=== PATIENT | male | born 1970 | race Hispanic/Latino ===

== ENCOUNTER 2016-11-24 23:20 | Emergency (ER) | payer MEDICARE | END 2016-11-25 00:15 | disposition left against medical advice (07) | LOC: ED 23:20 | DX: R03.0 Elevated blood-pressure reading, without diagnosis of hypertension (principal); Z53.21 Procedure and treatment not carried out due to patient leaving prior to being seen by health care provider ==

== ENCOUNTER 2016-12-11 16:13 | Emergency (ER) | payer OTHER, MEDICARE ==
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
[2016-12-11 17:04] LABS: Basophils % (Auto) 0.9 % (0.0-1.8); Eosinophils % (Auto) 0.9 % (0.0-4.3); Hematocrit 32.8 % (35.5-45.6); Hemoglobin 10.5 gm/dl (11.8-15.2); Mean Corpuscular HGB Conc 32 % (32-34); Mean Corpuscular Hemoglobin 27 pg (28-32); Mean Corpuscular Volume 84 fl (84-94); Platelet Count 185 K/mm3 (140-440); Red Cell Distribution Width 18.2 % (13.2-15.2); White Blood Count 4.7 K/mm3 (4.5-11.0)
[2016-12-11 17:10] LABS: BUN/Creatinine Ratio 8.62; Calcium 9.1 mg/dL (8.4-10.2); Chloride 98.5 mmol/L (98-107); Potassium 4.1 mmol/L (3.6-5.0)
[2016-12-11 17:15] LABS: INR 1.14 (0.87-1.13)
--- NOTE | 2016-12-12 08:16 | XRay Report ---
RIGHT HUMERUS: History: Trauma/puncture wound AP and lateral views of the humerus demonstrate normal mineralization and contours for this patient's age. No destructive changes are noted and the adjacent soft tissues are normal. IMPRESSION: Normal right humerus.
== END 2016-12-11 17:35 | disposition home or self-care (01) ==
LOC: ED 16:13
DX: T82.838A Hemorrhage due to vascular prosthetic devices, implants and grafts, initial encounter (principal); E11.9 Type 2 diabetes mellitus without complications; N28.89 Other specified disorders of kidney and ureter; Z88.2 Allergy status to sulfonamides; V89.2XXA Person injured in unspecified motor-vehicle accident, traffic, initial encounter; Y92.488 Other paved roadways as the place of occurrence of the external cause; Y93.89 Activity, other specified; Y99.8 Other external cause status
CPT/HCPCS: 36415; 73060; 80048; 85025; 85610; 85730; 86850; 86900; 86901; 99284; A6021

== ENCOUNTER 2017-06-24 08:53 | Emergency (ER) | payer MEDICARE ==
[2017-06-24] MEDS ORDERED: SODIUM BICARBONATE IV ONE (09:10)
[2017-06-24] MEDS ORDERED: NARCAN 0.4 MG/1 ML ONE (09:10)
[2017-06-24] MEDS ORDERED: ADRENALIN ONE (09:10)
[2017-06-24] MEDS ORDERED: CALCIUM CHLORIDE IV ONE (09:10)
--- NOTE | 2017-06-24 09:22 | Emergency Department Report ---
ED CPR HPI - General Stated Complaint: CARDIAC ARREST Time Seen by Provider: 06/24/17 09:17 - History of Present Illness Initial Comments: 46-year-old male brought in from dialysis in cardiac arrest. EMS was called out to dialysis at approximately 8:30 to for a patient in cardiac arrest. EMS arrived and found patient in full arrest, no pulse no spontaneous respirations. They started CPR and intubated the patient and transported him to the emergency department. Prior to arrival he received 2 rounds of epinephrine two defibrillations. MD Complaint: found unresponsive -: minute(s) Place: other (dialysis Center) Shock Advised: Yes Number of Shocks Delivered: 3 Initial Findings in the Field: unresponsive, no respirations, VTACH/VFIB ROSC in the Field: No Associated Injuries: No Treatments Prior to Arrival: intubation, defribrillated shocks # (3), epinephrine mgs # (2) - Related Data Previous Rx's Medication Instructions Recorded Last Taken Type Amoxicillin/K Clav Tab [Augmentin 1 tab PO BID #20 tablet 02/22/14 Unknown Rx 875MG] Doxycycline [Vibramycin CAP] 100 mg PO BID #20 capsule 02/22/14 Unknown Rx Mupirocin [Bactroban 2% Oint] 1 applic TP TID #22 gram 02/22/14 Unknown Rx Clindamycin [Cleocin] 300 mg PO Q8H #20 cap 03/10/14 Unknown Rx HYDROcodone/APAP 10-325 [[place] 1 each PO Q6HR PRN #14 tablet 03/10/14 Unknown Rx 10-325 mg TAB] Allergies Allergy/AdvReac Type Severity Reaction Status Date / Time Sulfa (Sulfonamide Allergy Swelling Verified 02/22/14 13:32 Antibiotics) ED Review of Systems ROS: Stated complaint: CARDIAC ARREST Other details as noted in HPI Comment: Unobtainable due to pts medical conditions ED Past Medical Hx - Past Medical History Hx Diabetes: Yes Hx Renal Disease: Yes (HD MWF) Additional medical history: renal transplant/pancreas transplant - Surgical History Hx Coronary Stent: Yes Additional Surgical History: pancreas/kidney transplant 04/2012 - Social History Smoking Status: Never Smoker Substance Use Type: None - Medications Home Medications: Home Medications Medication Instructions Recorded Confirmed Last Taken Type Amoxicillin/K Clav Tab [Augmentin 1 tab PO BID #20 tablet 02/22/14 Unknown Rx 875MG] Doxycycline [Vibramycin CAP] 100 mg PO BID #20 capsule 02/22/14 Unknown Rx Mupirocin [Bactroban 2% Oint] 1 applic TP TID #22 gram 02/22/14 Unknown Rx Clindamycin [Cleocin] 300 mg PO Q8H #20 cap 03/10/14 Unknown Rx HYDROcodone/APAP 10-325 [[place] 1 each PO Q6HR PRN #14 tablet 03/10/14 Unknown Rx 10-325 mg TAB] ED Physical Exam - General Limitations: Altered Mental Status General appearance: obtunded - Head Head exam: Present: atraumatic, normocephalic - Eye Eye exam: Present: other (pupils fixed and dilated) - ENT ENT exam: Present: normal orophraynx, other (intubated) - Neck Neck exam: Absent: lymphadenopathy - Respiratory Respiratory exam: Present: other (increased breath sounds on left) - Cardiovascular Cardiovascular Exam: Present: other (no heart sounds) - GI/Abdominal GI/Abdominal exam: Absent: distended, tenderness (old well-healed abdominal incision) ED Medical Decision Making - Medical Decision Making 46-year-old male who presented to emergency department in cardiac arrest. Patient was transported from dialysis. A phone call to 911 was initiated at approximately 8:32 AM. CPR was initiated by EMS. On arrival here the patient had no spontaneous respirations and no pulse. CPR was continued for 20 minutes. He was given multiple rounds of epinephrine and amiodarone bicarbonate and calcium. He was defibrillated multiple times. Unfortunately he remained in refractory V. fib and no pulse was able to be achieved. Resuscitation efforts were terminated at 9:10 AM and the patient was declared . Discussed patient's care with the patient's mother when she arrived. Portions of this chart were dictated with dictation software. There may be dictation errors contained within this note. Critical Care Time: Yes (40) Critical care attestation.: If time is entered above; I have spent that time in minutes in the direct care of this critically ill patient, excluding procedure time. Critical Care Time: 40 ED Disposition Clinical Impression: Cardiac arrest, Ventricular fibrillation Disposition: DC-20 Is pt being admited?: No Condition: Critical
== END 2017-06-24 12:10 ==
LOC: ED 08:53
DX: I46.9 Cardiac arrest, cause unspecified (principal); E11.22 Type 2 diabetes mellitus with diabetic chronic kidney disease; N18.6 End stage renal disease; I49.01 Ventricular fibrillation; Z88.2 Allergy status to sulfonamides
CPT/HCPCS: 82962; 92950; 99291; J0153; J0171; J2310